=== PATIENT | male | born 1980 | race African-American/Black ===

== ENCOUNTER 2016-12-25 21:27 | Emergency (ER) | payer SELFPAY ==
[~2016-12-25] VITALS: Ht 180.3 cm; Wt 72.4 kg
[~2016-12-25 21:27] MED LIST: KEFLEX500 MG PO
[2016-12-25] MEDS ORDERED: KEFLEX500 MG PO (23:45)
[2016-12-26 00:01] VITALS: BP 119/73
== END 2016-12-26 00:01 | disposition home or self-care (01) ==
LOC: EME 21:27
PROC: 3E0234Z Introduction of Serum, Toxoid and Vaccine into Muscle, Percutaneous Approach (ICD-10-PCS; principal; 2016-12-25)
DX: S51.832A Puncture wound without foreign body of left forearm, initial encounter (principal); W20.8XXA Other cause of strike by thrown, projected or falling object, initial encounter; Z23 Encounter for immunization; F17.200 Nicotine dependence, unspecified, uncomplicated
CPT/HCPCS: 73090; 99281; 99284